=== PATIENT | female | born 1980 | race Caucasian/White ===

== ENCOUNTER 2023-09-08 08:33 | Emergency (ER) | payer MEDICAID ==
[~2023-09-08] VITALS: Ht 165.1 cm; Wt 61.7 kg
[~2023-09-08 08:33] MED LIST: NO HOME MEDS
[2023-09-08 08:34] VITALS: BP 167/96; PULSE 104; RESP 16; O2SAT 100
[2023-09-08] MEDS ORDERED: proMETHazine 25mg tablet PO ONE (09:10)
[2023-09-08] MEDS ORDERED: ONDA4TAB12 PO (09:10)
[2023-09-08 11:16] VITALS: TEMP 99.1
== END 2023-09-08 11:24 | disposition home or self-care (01) ==
LOC: ER 08:33
DX: Z00.8 Encounter for other general examination (principal); F19.10 Other psychoactive substance abuse, uncomplicated; F17.200 Nicotine dependence, unspecified, uncomplicated; F10.90 Alcohol use, unspecified, uncomplicated; F15.90 Other stimulant use, unspecified, uncomplicated
CPT/HCPCS: 29515; 99283; Q0169

== ENCOUNTER 2023-09-14 18:33 | Emergency (ER) | payer MEDICAID ==
[~2023-09-14] VITALS: Ht 160 cm; Wt 56.8 kg
[~2023-09-14 18:33] MED LIST changes: +ONDA4TAB12 PO
[2023-09-14] MEDS ORDERED: normal saline 1000ML IV soln IVB ONE (19:05)
[2023-09-14] MEDS ORDERED: ondansetron/PF 4mg/2ml inj IV ONE (19:05)
[2023-09-14 19:41] LABS: BASOPHILS % (AUTO) 0.5 % (0-1); EOSINOPHILS # (AUTO) 0.1 X10'3 (0-0.9); EOSINOPHILS % (AUTO) 0.7 % (0-6); HEMATOCRIT 42.4 % (35.0-45.0); HEMOGLOBIN 14.3 g/dl (12.0-16.0); LYMPHOCYTES # (AUTO) 1.1 X10'3 (1.1-4.8); LYMPHOCYTES % (AUTO) 12.5 % (21-51); MEAN CORPUSCULAR HEMOGLOBIN 29.4 PG (27.0-31.0); MEAN CORPUSCULAR HGB CONC 33.6 g/dL (33.0-36.5); MEAN CORPUSCULAR VOLUME 87.5 FL (78-98); MEAN PLATELET VOLUME 7.8 FL (7.4-10.4); MONOCYTES # (AUTO) 0.8 X10'3 (0-0.9); MONOCYTES % (AUTO) 8.8 % (2-12); NEUTROPHILS # (AUTO) 7.1 X10'3 (1.8-7.7); NEUTROPHILS % (AUTO) 77.5 % (42-75); PLATELET COUNT 304 X10'3 (140-440); RED BLOOD COUNT 4.85 X10'6 (4.20-5.60); RED CELL DISTRIBUTION WIDTH 14.4 % (11.5-14.5); WHITE BLOOD COUNT 9.2 X10'3 (4.5-11.0)
[2023-09-14 19:47] LABS: HCG SERUM QL NEGATIVE
[2023-09-14 19:54] LABS: ALANINE AMINOTRANSFERASE 26 U/L (12-78); ALBUMIN 3.8 G/DL (3.4-5.0); ALBUMIN/GLOBULIN RATIO 1.1 (1.1-1.5); ALKALINE PHOSPHATASE 59 IU/L (46-116); ANION GAP 12 (8-16); ASPARTATE AMINO TRANSFERASE 40 U/L (10-37); BILIRUBIN,TOTAL 0.5 MG/DL (0.1-1.0); BLOOD UREA NITROGEN 12 MG/DL (7-18); BUN/CREATININE RATIO 17.1 (10.0-20.0); CALCIUM 9.1 MG/DL (8.5-10.1); CHLORIDE 103 MMOL/L (99-107); GLUCOSE 84 MG/DL (70-104); SODIUM 138 MMOL/L (135-145); TOTAL CARBON DIOXIDE 22.6 MMOL/L (24-32); TOTAL PROTEIN 7.2 G/DL (6.4-8.2); eCRCL 85 ML/MIN; eGFR > 90 ML/MIN
[2023-09-14 20:12] LABS: POTASSIUM 2.9 MMOL/L (3.5-5.1)
[2023-09-14] MEDS ORDERED: potassium Cl 20 mEq SR tablet PO ONE (20:30)
[2023-09-14 20:43] VITALS: BP 160/105; PULSE 85; TEMP 98.6
[2023-09-14] MEDS: potassium Cl 40MEQ/1/2NS 520ml 520 ML IV SCH (22:08)
[2023-09-15] MEDS: potassium Cl 40MEQ/1/2NS 520ml 520 ML IV SCH
[2023-09-15] MEDS ORDERED: potassium Cl 20 mEq SR tablet PO STA (00:19)
[2023-09-15 01:21] VITALS: RESP 18; O2SAT 98
== END 2023-09-15 02:06 | disposition home or self-care (01) ==
LOC: ER 18:33
DX: T40.411A Poisoning by fentanyl or fentanyl analogs, accidental (unintentional), initial encounter (principal); Y92.89 Other specified places as the place of occurrence of the external cause; F15.10 Other stimulant abuse, uncomplicated; Z59.00 Homelessness unspecified; Z79.899 Other long term (current) drug therapy
CPT/HCPCS: 36415; 80053; 84703; 85025; 96361; 96374; 99283; J2405; J3480; J7030; 99284

== ENCOUNTER 2023-09-16 15:39 | Emergency (ER) | payer MEDICAID ==
[~2023-09-16] VITALS: Ht 160 cm; Wt 59.1 kg
[2023-09-16 16:03] VITALS: BP 167/103; PULSE 105; RESP 18; TEMP 97.8; O2SAT 100
== END 2023-09-16 18:51 | disposition home or self-care (01) ==
LOC: ER 15:39
DX: F11.90 Opioid use, unspecified, uncomplicated (principal); F15.10 Other stimulant abuse, uncomplicated; Z59.00 Homelessness unspecified
CPT/HCPCS: 99281

== ENCOUNTER → 2024-02-02 | Outpatient (CLI) | payer MEDICAID | END | disposition home or self-care (01) | LOC: RAD 16:11 | PROVIDERS: ATTEND General Practice | DX: M19.041 Primary osteoarthritis, right hand (principal); M25.50 Pain in unspecified joint; M25.741 Osteophyte, right hand | CPT/HCPCS: 72040; 73130 ==